=== PATIENT | female | born 1940 | race Caucasian/White ===

== ENCOUNTER 2016-10-12 07:31 | Emergency (ER) | payer MEDICARE ==
[2016-10-12] MEDS ORDERED: Zofran 4 MG/2 ML VIAL IV ONE (07:47)
--- NOTE | 2016-10-12 07:54 | ERPHSYRPT ---
- History of Present Illness Time Seen by Provider: 10/12/16 07:42 Historian: patient Patient Subjective Stated Complaint: pt arrived per for weakness, lightheadedness, and loose stools that started at 0545 today,pt was able to get from to bed and undress without difficulty Triage Nursing Assessment: alert and follows commands well, skin w/d,resp easy, chest clear, no edema noted, mucus membranes moist Physician History: CC: diarrhea Hx: 76 y/o patient of Dr Riley. She has feeling of dizziness today. Lightheaded. Some buzzing. No hearing loss and no linda vertigo. She has had too numerous to count watery diarrhea stools today since 5AM. No blood. No abd pain. No fever or chills. No hx of DM. No headache. She took recent abtx thru [facility] [facility] for sinus infection. Timing/Duration: today (5AM) Allergies/Adverse Reactions: No Known Drug Allergies Allergy (Verified 10/12/16 07:48) Hx Tetanus, Diphtheria Vaccination/Date Given: Yes (unknown) Hx Influenza Vaccination/Date Given: No Hx Pneumococcal Vaccination/Date Given: Yes Immunizations Up to Date: Yes - Review of Systems Constitutional: Fatigue, Malaise, Weakness, No Fever, No Chills Eyes: No Symptoms Ears, Nose, & Throat: Tinnitus (buzzing), No Ear Pain, No Ear Discharge, No Hearing Changes Respiratory: No Cough, No Dyspnea Cardiac: No Chest Pain Abdominal/Gastrointestinal: Diarrhea, No Abdominal Pain, No Nausea, No Vomiting Genitourinary Symptoms: No Dysuria Skin: No Rash Neurological: Dizziness, No Focal Weakness, No Headache, No Parasthesia All Other Systems: Reviewed and Negative - Past Medical History Pertinent Past Medical History: Yes Neurological History: No Pertinent History ENT History: Cataracts Cardiac History: No Pertinent History Respiratory History: No Pertinent History Endocrine Medical History: No Pertinent History Musculoskeletal History: No Pertinent History GI Medical History: No Pertinent History History: Other Psycho-Social History: No Pertinent History Female Reproductive Disorders: No Pertinent History Other Medical History: bladder stones - Past Surgical History Past Surgical History: Yes Neuro Surgical History: No Pertinent History Cardiac: No Pertinent History Respiratory: No Pertinent History Gastrointestinal: No Pertinent History Genitourinary: Other Musculoskeletal: No Pertinent History Female Surgical History: Hysterectomy Other Surgical History: complete hysterectomy and bladder stone removal on - Social History Smoking Status: Never smoker Exposure to second hand smoke: No Drug Use: none Patient Lives Alone: No - Female History Hx Last Menstrual Period: hyster Hx Now: No - Nursing Vital Signs Nursing Vital Signs: Initial Vital Signs Temperature 97.8 F Temperature Source Oral Pulse Rate 89 Respiratory Rate 16 Blood Pressure [Right Arm] 156/93 Pain Intensity 0 - Physical Exam General Appearance: alert Eye Exam: PERRL/EOMI, other (no nystagmus) Ears, Nose, Throat Exam: normal ENT inspection, moist mucous membranes Neck Exam: normal inspection, non-tender, supple Respiratory Exam: normal breath sounds, lungs clear Cardiovascular Exam: regular rate/rhythm Gastrointestinal/Abdomen Exam: soft, No tenderness, No distention, No mass, No guarding Extremity Exam: normal inspection, normal range of motion Neurologic Exam: alert, oriented x 3, cooperative, entry table operator II-XII nml as tested, sensation nml, No motor deficits, No abnormal cerebellar tests (FTN is intact, Heel to Paulino is intact) Skin Exam: warm, dry, No rash SpO2 Interpretation: normal SpO2: 95 Oxygen Delivery: Room Air - Course Nursing assessment & vital signs reviewed: Yes EKG Interpreted by Me: RATE (93), Sinus Rhythm, NORMAL AXIS, NORMAL INTERVALS ( QTc 458), NORMAL QRS, NORMAL ST-T - Radiology Exams AAS X-ray Interpretation: Teleradiologist Report, Negative Ordered Tests: Active Orders 24 hr Category Date Time Status Cath for Specimen-Straight STAT Care 10/12/16 07:47 Active EKG-ER Only STAT Care 10/12/16 07:47 Active IV Insertion STAT Care 10/12/16 07:47 Active Orthostatic Vital Signs STAT Care 10/12/16 09:28 Active OBSTR/ACUTE ABDOMEN SERIES Stat Exams 10/12/16 07:47 Completed CBC W DIFF Stat Lab 10/12/16 08:30 Completed CMP Stat Lab 10/12/16 08:30 Completed Lactic Acid Urgent Lab 10/12/16 08:30 Completed Occult Blood,Stool Other Stat Lab 10/12/16 07:48 Ordered UA Stat Lab 10/12/16 08:45 Completed Medication Summary Generic Name Dose Route Start Last Admin Trade Name Freq PRN Reason Stop Dose Admin Sodium Chloride 1,000 mls @ 200 mls/hr 10/12/16 08:00 10/12/16 08:02 Sodium Chloride 0.9% 1000 Ml IV 11/11/16 07:59 200 mls/hr .Q5H EL Administration Discontinued Medications Generic Name Dose Route Start Last Admin Trade Name Jennifer PRN Reason Stop Dose Admin Ondansetron HCl 4 mg 10/12/16 07:47 10/12/16 08:02 Zofran 4 Mg/2 Ml Vial IV 10/12/16 07:48 4 mg STAT ONE Administration Ondansetron HCl Confirm 10/12/16 07:59 Zofran 4 Mg/2 Ml Vial Administered 10/12/16 08:00 Dose 4 mg .ROUTE .STK-MED ONE Lab/Rad Data: Laboratory Result Diagrams 10/12/16 08:30 10/12/16 08:30 Laboratory Results 10/12/16 10/12/16 10/12/16 Range/Units 08:45 08:30 08:30 WBC (4.0-10.5) K/mm3 RBC (4.1-5.4) M/mm3 Hgb (12.0-16.0) gm/dl Hct (35-47) % MCV (78-100) fl MCH (26-32) pg MCHC (32-36) g/dl RDW (11.5-14.0) % Plt Count (150-450) K/mm3 MPV (6-9.5) fl Gran % (36.0-66.0) % Lymphocytes % (24.0-44.0) % Monocytes % (0.0-12.0) % Eosinophils % (0.00-5.0) % Basophils % (0.0-0.4) % Basophils # (0-0.4) Sodium 144 (136-145) mEq/L Potassium 3.6 (3.5-5.1) mEq/L Chloride 107 (98-107) mEq/L Carbon Dioxide 28.9 (21-32) mEq/L Anion Gap 11.2 (5-15) MEQ/L BUN 17 (9-20) mg/dL Creatinine 0.93 (0.55-1.30) mg/dl Estimated GFR > 60 ML/MIN Glucose 111 H (70-110) MG/DL Lactic Acid 1.2 (0.4-2.0) Calcium 8.8 (8.5-10.1) mg/dL Total Bilirubin 0.5 (0.2-1.0) mg/dL AST 27 (15-37) U/L ALT 24 (12-78) U/L Alkaline Phosphatase 72 (46-116) U/L Serum Total Protein 7.1 (6.4-8.2) gm/dL Albumin 3.6 (3.4-5.0) g/dL Ur Collection Type VOID Urine Color YELLOW (YELLOW) Urine Appearance CLEAR (CLEAR) Urine pH 6.5 (5-6) Ur Specific [place] <=1.005 (1.005-1.025) Urine Protein NEGATIVE (Negative) Urine Glucose (UA) NEGATIVE (NEGATIVE) mg/dL Urine Ketones NEGATIVE (NEGATIVE) Urine Nitrite NEGATIVE (NEGATIVE) Urine Bilirubin NEGATIVE (NEGATIVE) Urine Urobilinogen 0.2 (0-1) mg/dL Urine WBC (Auto) NEGATIVE (NEGATIVE) Urine RBC (Auto) NEGATIVE (0-5) Alirio/ul Specimen Received 10/12/16 0845 10/12/16 Range/Units 08:30 WBC 8.7 (4.0-10.5) K/mm3 RBC 4.66 (4.1-5.4) M/mm3 Hgb 14.3 (12.0-16.0) gm/dl Hct 45.0 (35-47) % MCV 96.6 (78-100) fl MCH 30.7 (26-32) pg MCHC 31.8 L (32-36) g/dl RDW 13.9 (11.5-14.0) % Plt Count 234 (150-450) K/mm3 MPV 8.6 (6-9.5) fl Gran % 77.5 H (36.0-66.0) % Lymphocytes % 15.6 L (24.0-44.0) % Monocytes % 5.5 (0.0-12.0) % Eosinophils % 1.2 (0.00-5.0) % Basophils % 0.2 (0.0-0.4) % Basophils # 0.02 (0-0.4) Sodium (136-145) mEq/L Potassium (3.5-5.1) mEq/L Chloride (98-107) mEq/L Carbon Dioxide (21-32) mEq/L Anion Gap (5-15) MEQ/L BUN (9-20) mg/dL Creatinine (0.55-1.30) mg/dl Estimated GFR ML/MIN Glucose (70-110) MG/DL Lactic Acid (0.4-2.0) Calcium (8.5-10.1) mg/dL Total Bilirubin (0.2-1.0) mg/dL AST (15-37) U/L ALT (12-78) U/L Alkaline Phosphatase (46-116) U/L Serum Total Protein (6.4-8.2) gm/dL Albumin (3.4-5.0) g/dL Ur Collection Type Urine Color (YELLOW) Urine Appearance (CLEAR) Urine pH (5-6) Ur Specific [place] (1.005-1.025) Urine Protein (Negative) Urine Glucose (UA) (NEGATIVE) mg/dL Urine Ketones (NEGATIVE) Urine Nitrite (NEGATIVE) Urine Bilirubin (NEGATIVE) Urine Urobilinogen (0-1) mg/dL Urine WBC (Auto) (NEGATIVE) Urine RBC (Auto) (0-5) Alirio/ul Specimen Received - Progress Progress Note: 10/12/16 09:35 Patient feels better. Ambulated well in the alexis. Normal neuro exam. She will try to go home. Will give order for C diff in case diarrhea continues. Zofran ODT Rx. Counseled pt/family regarding: lab results, diagnosis, need for follow-up, rad results - Departure Time of Disposition: 09:36 Departure Disposition: Home Clinical Impression: Dizziness Diarrhea Qualifiers: Diarrhea type: unspecified type Qualified Code(s): R19.7 - Diarrhea, unspecified Condition: Fair Critical Care Time: No Referrals: ADWOA RILEY [Primary Care Provider] - Instructions: Diarrhea and Traveler's Diarrhea -- Adult Additional Instructions: Plenty of oral fluids. Rx zofran ODT for nausea. Collect diarrhea for C diff test. Follow up with Dr Riley. Return for problems or concerns. Prescriptions: Ondansetron [Zofran Odt] 4 mg PO Q6HPRN PRN #10 tab.rapdis PRN Reason: Nausea/Vomiting
[2016-10-12] MEDS ORDERED: Zofran 4 MG/2 ML VIAL ONE (07:59)
[2016-10-12] MEDS ORDERED: Sodium Chloride 0.9% 1000 ML 1,000 ML ONE (07:59)
[2016-10-12] MEDS ORDERED: Sodium Chloride 0.9% 1000 ML 1,000 ML IV SCH (08:00)
[2016-10-12 08:38] LABS: BASOPHIL % 0.2 % (0.0-0.4); Eosinophil % 1.2 % (0.00-5.0); Granulocytes % 77.5 % (36.0-66.0); Lymphocytes % 15.6 % (24.0-44.0); Mean Cell Volume 96.6 fl (78-100); Mean Corpuscular Hemoglobin 30.7 pg (26-32); Mean Platelet Volume 8.6 fl (6-9.5); Monocytes % 5.5 % (0.0-12.0); Platelet Count 234 K/mm3 (150-450); Red Blood Count 4.66 M/mm3 (4.1-5.4); Red Cell Distribution Width 13.9 % (11.5-14.0); White Blood Count 8.7 K/mm3 (4.0-10.5)
[2016-10-12 08:57] LABS: Collection Type VOID
[2016-10-12 08:58] LABS: COMPLETE URINE MICROSCOPIC? NO; Ph 6.5 (5-6)
--- NOTE | 2016-10-12 09:03 | XRAY ---
Indication: Diarrhea. Dizziness. Comparison: September 22, 2012. 2 views of the abdomen again nonacute and nonobstructed with a few pelvic phleboliths. Solid organs unremarkable. Osseous structures again demineralized with mild degenerative changes throughout the spine and levorotoscoliosis. Single PA chest remains clear again with chronic left hemidiaphragm elevation. Heart is not enlarged. Bony thorax intact with again osteopenia, degenerative changes, and dextrorotoscoliosis. Impression: 1. Stable nonacute nonobstructed abdomen. 2. Stable nonacute 1 view chest with chronic feature. 3. Stable osteopenia, spinal degenerative spondylosis, and double curvature scoliosis.
[2016-10-12 09:13] LABS: ALBUMIN 3.6 g/dL (3.4-5.0); ALKALINE PHOSPHATASE 72 U/L (46-116); ANION GAP 11.2 MEQ/L (5-15); BILIRUBIN,TOTAL 0.5 mg/dL (0.2-1.0); BLOOD UREA NITROGEN 17 mg/dL (9-20); CHLORIDE 107 mEq/L (98-107); Carbon Dioxide 28.9 mEq/L (21-32); Glucose 111 MG/DL (70-110); Potassium 3.6 mEq/L (3.5-5.1); SGOT/AST 27 U/L (15-37); SGPT/ALT 24 U/L (12-78); SODIUM 144 mEq/L (136-145); Total Protein 7.1 gm/dL (6.4-8.2)
[2016-10-12 09:37] VITALS: BP 142/64; PULSE 91; O2SAT 95
== END 2016-10-12 09:49 | disposition home or self-care (01) ==
LOC: ED 07:31
DX: R19.7 Diarrhea, unspecified (principal); R42 Dizziness and giddiness; H93.19 Tinnitus, unspecified ear
CPT/HCPCS: 36000; 36415; 74022; 80053; 81002; 83605; 85025; 93005; 96360; 96361; 96374; 99284; J2405; P9612

== ENCOUNTER 2016-10-22 07:07 | Emergency (ER) | payer MEDICARE ==
[2016-10-22] MEDS ORDERED: PEROXIDE 3% TOP ONE (07:37)
--- NOTE | 2016-10-22 07:48 | ERPHSYRPT ---
- History of Present Illness Time Seen by Provider: 10/22/16 07:35 Source: patient Exam Limitations: clinical condition Patient Subjective Stated Complaint: pt co htn this morning, she states she has ringing in ears, Triage Nursing Assessment: pt alert resp easy, skin w/d,walked in on own. small amt of edema in lower legs Physician History: PATIENT EVALUATED IN EMERGENCY ROOM 1 WEEK AGO OF ELEVATED BLOOD PRESSURE, HOWEVER BLOOD PRESSURE IN NORMAL RANGE, TODAY FEELS LIKE BUZZING SENSATION IN HEAD, DENIES HEADACHE, BLURRED VISION, SLURRED SPEECH, FOCAL WEAKNESS, NUMBNESS OR TINGLING IN EXTREMITIES. DENIES PALPITATIONS, CHEST PAIN, DYSPNEA, COUGH, FEVER, OR FACIAL PRESSURE. Timing/Duration: today Severity: moderate Character of Deficits: other (BUZZING SENSATION IN HEAD) Deficits: no difficulties Baseline/Normal Cognition: alert oriented x 3 Current Cognition: alert oriented x 3 Baseline Gait: walks w/o assistance Associated Symptoms: ringing in ears (BUZZING IN HEAD POSSIBLE IN EARS) Allergies/Adverse Reactions: No Known Drug Allergies Allergy (Verified 10/22/16 07:16) Hx Tetanus, Diphtheria Vaccination/Date Given: Yes (unknown) Hx Influenza Vaccination/Date Given: No Hx Pneumococcal Vaccination/Date Given: No Immunizations Up to Date: Yes - Review of Systems Constitutional: No Fever, No Chills Eyes: No Symptoms Ears, Nose, & Throat: No Symptoms Respiratory: No Symptoms, No Cough, No Dyspnea Cardiac: No Symptoms, No Chest Pain, No Edema, No Syncope Abdominal/Gastrointestinal: No Symptoms, No Abdominal Pain, No Nausea, No Vomiting, No Diarrhea Genitourinary Symptoms: No Symptoms, No Dysuria Musculoskeletal: No Symptoms, No Back Pain, No Neck Pain Skin: No Symptoms, No Rash Neurological: Other (BUZZING IN HEAD), No Dizziness, No Focal Weakness, No Sensory Changes Psychological: No Symptoms Endocrine: No Symptoms All Other Systems: Reviewed and Negative - Past Medical History Pertinent Past Medical History: Yes Neurological History: No Pertinent History ENT History: Cataracts Cardiac History: No Pertinent History Respiratory History: No Pertinent History Endocrine Medical History: No Pertinent History Musculoskeletal History: No Pertinent History GI Medical History: No Pertinent History History: Other Psycho-Social History: No Pertinent History Female Reproductive Disorders: No Pertinent History Other Medical History: bladder stones - Past Surgical History Past Surgical History: Yes Neuro Surgical History: No Pertinent History Cardiac: No Pertinent History Respiratory: No Pertinent History Gastrointestinal: No Pertinent History Genitourinary: Other Musculoskeletal: No Pertinent History Female Surgical History: Hysterectomy Other Surgical History: complete hysterectomy and bladder stone removal on - Social History Smoking Status: Never smoker Exposure to second hand smoke: Yes Drug Use: none Patient Lives Alone: Yes - Female History Hx Last Menstrual Period: post Hx Now: No - Nursing Vital Signs Nursing Vital Signs: Initial Vital Signs Temperature 97.4 F Temperature Source Oral Pulse Rate 78 Respiratory Rate 18 Blood Pressure [Right Arm] 137/82 Pain Intensity 0 - [place] Coma Scale Best Eye Response (Aliza): (4) open spontaneously Best Verbal Response ([place]): (5) oriented Best Motor Response (Aliza): (6) obeys commands Aliza Total: 15 - Physical Exam General Appearance: no apparent distress, alert Eye Exam: bilateral eye: normal inspection, PERRL, EOMI Ears, Nose, Throat Exam: normal ENT inspection, pharynx normal, moist mucous membranes, other (UNABLE TO VISUALIZE TM DUE TO OCCLUSION OF CERUMEN) Neck Exam: normal inspection, non-tender, supple Respiratory: normal breath sounds, lungs clear, airway intact, No respiratory distress Cardiovascular: regular rate/rhythm, No edema Gastrointestinal: soft, normal bowel sounds, No tenderness, No distention Back Exam: normal inspection Extremity Exam: normal inspection, No pedal edema Peripheral Pulses: carotid (R): 2+, carotid (L): 2+, femoral (R): 2+, femoral (L ): 2+, dorsalis-pedis (R): 2+, dorsalis-pedis (L): 2+ Mental Status: alert, oriented x 3 client executive Exam: normal hearing, tongue midline Coordination/Gait: normal finger to nose, normal gait DTR: bicep (R): 2+, bicep (L): 2+, tricep (R): 2+, tricep (L): 2+, knee (R): 2+ , knee (L): 2+, ankle (R): 2+, ankle (L): 2+ Skin Exam: normal color, warm, dry, No rash SpO2 Interpretation: normal SpO2: 94 Oxygen Delivery: Room Air - Course EKG Interpreted by Me: RATE, Sinus Rhythm, NORMAL AXIS - CT Exams Head CT Interpretation: Discussed w/radiologist (THERE IS AIR FLUID LEVEL IN RIGHT MAXILLARY SINUS AND MINIMAL BILATERAL ETHMOID SINUS MUCOSAL THICKENING) Ordered Tests: Active Orders 24 hr Category Date Time Status Account Manager [employer] STAT Care 10/22/16 07:32 Active EKG-ER Only STAT Care 10/22/16 07:32 Active IV Insertion STAT Care 10/22/16 08:01 Active Orthostatic Vital Signs STAT Care 10/22/16 07:32 Active Saline Lock STAT Care 10/22/16 07:35 Inactive HEAD WITHOUT CONTRAST [CT] Stat Exams 10/22/16 07:34 Completed BMP Stat Lab 10/22/16 07:51 Completed CBC W DIFF Stat Lab 10/22/16 07:51 Completed MAGNESIUM Stat Lab 10/22/16 07:51 Completed Manual Differential NC Stat Lab 10/22/16 07:51 Completed UA W/ MICROSCOPIC Stat Lab 10/22/16 07:34 Completed Medication Summary Discontinued Medications Generic Name Dose Route Start Last Admin Trade Name Freq PRN Reason Stop Dose Admin Hydrogen Peroxide 5 ml 10/22/16 07:37 10/22/16 08:03 Peroxide 3% TOP 10/22/16 07:38 237 ml STAT ONE Administration Hydrogen Peroxide Confirm 10/22/16 08:03 Peroxide 3% Administered 10/22/16 08:04 Dose 237 ml .ROUTE .STMercantec-MED ONE Lab/Rad Data: Laboratory Result Diagrams 10/22/16 07:51 10/22/16 07:51 Laboratory Results 10/22/16 10/22/16 10/22/16 Range/Units 07:51 07:51 07:34 WBC 9.1 (4.0-10.5) K/mm3 RBC 4.72 (4.1-5.4) M/mm3 Hgb 14.7 (12.0-16.0) gm/dl Hct 45.7 (35-47) % MCV 96.8 (78-100) fl MCH 31.1 (26-32) pg MCHC 32.2 (32-36) g/dl RDW 13.7 (11.5-14.0) % Plt Count 161 (150-450) K/mm3 MPV 10.7 H (6-9.5) fl Sodium 143 (136-145) mEq/L Potassium 4.0 (3.5-5.1) mEq/L Chloride 107 (98-107) mEq/L Carbon Dioxide 29.8 (21-32) mEq/L Anion Gap 10.4 (5-15) MEQ/L BUN 15 (9-20) mg/dL Creatinine 0.93 (0.55-1.30) mg/dl Estimated GFR > 60 ML/MIN Glucose 108 (70-110) MG/DL Calcium 9.1 (8.5-10.1) mg/dL Magnesium 2.1 (1.8-2.4) mg/dL Ur Collection Type CLEAN CATCH Urine Color YELLOW (YELLOW) Urine Appearance CLEAR (CLEAR) Urine pH 7.0 (5-6) Ur Specific [place] 1.010 (1.005-1.025) Urine Protein NEGATIVE (Negative) Urine Glucose (UA) NEGATIVE (NEGATIVE) mg/dL Urine Ketones NEGATIVE (NEGATIVE) Urine Nitrite NEGATIVE (NEGATIVE) Urine Bilirubin NEGATIVE (NEGATIVE) Urine Urobilinogen 0.2 (0-1) mg/dL Urine WBC (Auto) TRACE (NEGATIVE) Urine RBC (Auto) NEGATIVE (0-5) Alirio/ul Urine Microscopic WBC 2-5 (0-5) /HPF Ur Epithelial Cells FEW (FEW) /HPF Urine Bacteria RARE (NEGATIVE) /HPF Specimen Received 10/22/16 0707 - Progress Progress: improved Progress Note: 10/22/16 08:04 ORTHOSTASIS STANDING BP137/83 P-89, SUPINE BP114/89 P-88 10/22/16 08:58 EAR CANALS IRRIGATION WITH TAP WATER AND 3% PEROXIDE, REMOVAL CERUMEN, TYMPANIC MEMBRANES WITHOUT ERYTHEMA 10/22/16 09:03 Counseled pt/family regarding: lab results, diagnosis, rad results - Departure Time of Disposition: 09:05 Departure Disposition: Home Clinical Impression: ACUTE MAXILLARY/ETHMOID SINUSITIS, REMOVAL CERUMEN BILATERAL EAR CANALS Condition: Stable Critical Care Time: No Additional Instructions: ANTIBIOTIC AUGMENTIN 875MG TWICE DAILY FOR 10 DAYS. FOLLOWUP WITH YOUR FAMILY PHYSICIAN IN 1 WEEK FOR EVALUATION. Prescriptions: Amox Tr/Potass Clav. 875 mg [Augmentin 875-125 Tablet] 875 mg PO BID #20 tablet
[2016-10-22] MEDS ORDERED: PEROXIDE 3% ONE (08:03)
[2016-10-22 08:19] LABS: ANION GAP 10.4 MEQ/L (5-15); BLOOD UREA NITROGEN 15 mg/dL (9-20); CHLORIDE 107 mEq/L (98-107); Carbon Dioxide 29.8 mEq/L (21-32); Glucose 108 MG/DL (70-110); MAGNESIUM 2.1 mg/dL (1.8-2.4); SODIUM 143 mEq/L (136-145)
[2016-10-22 08:21] LABS: Collection Type CLEAN CATCH
[2016-10-22 08:22] LABS: COMPLETE URINE MICROSCOPIC? YES
[2016-10-22 08:30] LABS: Bacteria RARE /HPF (NEGATIVE); Epithelial Cells FEW /HPF (FEW)
[2016-10-22 08:34] LABS: Mean Cell Volume 96.8 fl (78-100); Mean Corpuscular Hemoglobin 31.1 pg (26-32); Mean Platelet Volume 10.7 fl (6-9.5); Platelet Count 161 K/mm3 (150-450); Red Blood Count 4.72 M/mm3 (4.1-5.4); Red Cell Distribution Width 13.7 % (11.5-14.0); White Blood Count 9.1 K/mm3 (4.0-10.5)
--- NOTE | 2016-10-22 08:56 | XRAY ---
Indication: Lightheadedness. High blood pressure. Multiple contiguous axial images obtained through the head without contrast. Comparison: None Age-appropriate global atrophy and minimal periventricular degenerative micro-ischemia bilaterally. Small focus of old infarct in the right parietal lobe near the vertex. Benign bilateral physiologic basal ganglia calcifications. No acute intracranial hemorrhage, hydrocephalus, or mass effect. Bony calvarium intact with mild hyperostosis frontalis interna. Visualized paranasal sinuses and mastoid air cells are pneumatized and clear. 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 CT DI 96.90
[2016-10-22 09:43] VITALS: BP 136/59; PULSE 70; O2SAT 97
[2016-10-22 12:55] LABS: Eosinophil 1 % (0.00-3.0); Total Cells Counted 100
[2016-10-22 12:56] LABS: Platelet Estimate NORMAL (NORMAL); Toxic Granulation 1+
== END 2016-10-22 09:43 | disposition home or self-care (01) ==
LOC: ED 07:07
DX: H61.23 Impacted cerumen, bilateral (principal); I25.2 Old myocardial infarction; I10 Essential (primary) hypertension; H93.13 Tinnitus, bilateral
CPT/HCPCS: 36415; 70450; 80048; 81000; 83735; 85025; 93005; 93041; 99283; 99285; A9270-GY

== ENCOUNTER 2016-12-21 06:20 | Observation (INO) | payer MEDICARE ==
--- NOTE | 2016-12-21 06:58 | ERPHSYRPT ---
- History of Present Illness Time Seen by Provider: 12/21/16 06:37 Source: patient, family (SON) Exam Limitations: no limitations Patient Subjective Stated Complaint: pt is co "buzzing in ears and head" this am states she has feeling of tightness in left jaw when she swallows-she is worried because a year ago she had a surgery on her right throat for an abscess that was done from the left lide of her neck no fever no shortness of breath no diaphoresis cough this am with phlegm times one -she was recently started on losartan for b/p Triage Nursing Assessment: pt is awake and alert and able to answer questions - talking without difficulty resp reg and easy Physician History: YESTERDAY PT STARTED WITH BUZZING IN HER HEAD AND A COUGH PRODUCTIVE OF WHITE PHLEGM. ABOUT 2 HOURS AGO PT STARTED WITH DIFFICULTY SWALLOWING AND PAIN IN THE LEFT SIDE OF HER NECK AND LEFT JAW. PT DENIES CHEST PAIN, SHORTNESS OF AIR, FEVER, ABDOMINAL PAIN. PT HAD A "POUCH" ON THE LEFT SIDE OF THE NECK REMOVED IN FEBRUARY [address] STEWART AT [facility] IN [place]. Allergies/Adverse Reactions: No Known Drug Allergies Allergy (Verified 12/21/16 06:50) Home Medications: Losartan Potassium 25 mg DAILY 12/21/16 [History] Hx Tetanus, Diphtheria Vaccination/Date Given: Yes (unknown) Hx Influenza Vaccination/Date Given: No Hx Pneumococcal Vaccination/Date Given: Yes - Review of Systems Constitutional: No Fever Ears, Nose, & Throat: Other (DIFFICULTY SWALLOWING THIS AM; LEFT JAW PAIN.) Respiratory: Cough Cardiac: No Chest Pain Abdominal/Gastrointestinal: No Abdominal Pain, No Vomiting Musculoskeletal: Neck Pain (LEFT SIDE OF NECK PAIN) Neurological: Other (BUZZING IN HEAD) All Other Systems: Reviewed and Negative - Past Medical History Pertinent Past Medical History: Yes Neurological History: No Pertinent History ENT History: Cataracts Cardiac History: No Pertinent History Respiratory History: No Pertinent History Endocrine Medical History: No Pertinent History Musculoskeletal History: No Pertinent History GI Medical History: No Pertinent History History: Other Psycho-Social History: No Pertinent History Female Reproductive Disorders: No Pertinent History Other Medical History: bladder stones abscess right neck - Past Surgical History Past Surgical History: Yes Neuro Surgical History: No Pertinent History Cardiac: No Pertinent History Respiratory: No Pertinent History Gastrointestinal: No Pertinent History Genitourinary: Other Musculoskeletal: No Pertinent History Female Surgical History: Hysterectomy Other Surgical History: complete hysterectomy and bladder stone removal on abcsess of right neck - Social History Smoking Status: Never smoker Exposure to second hand smoke: No Drug Use: none Patient Lives Alone: No (with son) - Female History Hx Last Menstrual Period: na Hx Now: No - Nursing Vital Signs Nursing Vital Signs: Initial Vital Signs Temperature 98.7 F Temperature Source Oral Pulse Rate 88 Respiratory Rate 16 Blood Pressure [Right Arm] 140/70 Pain Intensity 0 - Physical Exam General Appearance: alert Eye Exam: PERRL/EOMI Ears, Nose, Throat Exam: pharynx normal, moist mucous membranes, other (CERUMEN OCCLUSION OF LEFT EAR) Neck Exam: full range of motion, other (MILD TENDERNESS OF THE LEFT SIDE OF THE NECK BELOW LEFT JAW) Respiratory Exam: normal breath sounds Cardiovascular Exam: murmur (1/6 SYSTOLIC MURMUR) Gastrointestinal/Abdomen Exam: soft, other (B.S. MILDLY HYPERACTIVE AND NORMOTONIC) Back Exam: normal range of motion Extremity Exam: normal inspection Neurologic Exam: alert, cooperative, normal mood/affect Skin Exam: warm, dry SpO2 Interpretation: normal SpO2: 95 Oxygen Delivery: Room Air - Course Nursing assessment & vital signs reviewed: Yes - Progress Discussed with Dr.: Riley (OBS - 0713(ORDER CARDIAC WORKUP AND CAROTID DOPPLER STUDY).) - Departure Time of Disposition: 07:20 Departure Disposition: Observation Clinical Impression: LEFT JAW/NECK PAIN, DIFFICULTY SWALLOWING Condition: Fair Critical Care Time: No
[2016-12-21] MEDS ORDERED: Sodium Chloride 0.9% 1000 ML 1,000 ML IV SCH (07:30)
[2016-12-21 07:41] LABS: BASOPHIL % 0.2 % (0.0-0.4); Eosinophil % 1.8 % (0.00-5.0); Granulocytes % 69.3 % (36.0-66.0); Lymphocytes % 21.9 % (24.0-44.0); Mean Cell Volume 97.4 fl (78-100); Mean Corpuscular Hemoglobin 31.5 pg (26-32); Mean Platelet Volume 8.7 fl (6-9.5); Monocytes % 6.8 % (0.0-12.0); Platelet Count 261 K/mm3 (150-450); Red Blood Count 4.63 M/mm3 (4.1-5.4); Red Cell Distribution Width 12.9 % (11.5-14.0); White Blood Count 8.7 K/mm3 (4.0-10.5)
[2016-12-21 08:06] LABS: ALBUMIN 3.6 g/dL (3.4-5.0); ALKALINE PHOSPHATASE 89 U/L (46-116); ANION GAP 12.4 MEQ/L (5-15); BLOOD UREA NITROGEN 14 mg/dL (9-20); CHLORIDE 109 mEq/L (98-107); Carbon Dioxide 27.9 mEq/L (21-32); Glucose 118 MG/DL (70-110); Potassium 3.5 mEq/L (3.5-5.1); SGOT/AST 29 U/L (15-37); SGPT/ALT 28 U/L (12-78); SODIUM 146 mEq/L (136-145); Total Protein 7.6 gm/dL (6.4-8.2)
[2016-12-21 08:08] LABS: TROPONIN < 0.017 ng/ml (0.000-0.056)
[2016-12-21] MEDS ORDERED: Phenergan 25 MG INJ IV PRN (08:09)
[2016-12-21] MEDS ORDERED: TYLENOL 325 MG PO PRN (08:09)
--- NOTE | 2016-12-21 09:02 | XRAY ---
Indication: Difficulty swallowing. Left jaw/neck pain. Comparison: October 12, 2016. Portable chest remains clear with chronic left hemidiaphragm elevation. Heart is not enlarged. Bony thorax intact again with a degenerative changes and scoliosis. No new/acute findings. Impression: Stable nonacute chest with chronic features.
[2016-12-21 09:57] LABS: COMPLETE URINE MICROSCOPIC? YES; Collection Type CCMS
[2016-12-21] MEDS ORDERED: Cozaar 50 MG PO SCH (10:00)
[2016-12-21 10:16] LABS: ADD URINE CULTURE? NO (NO); Bacteria FEW /HPF (NEGATIVE); Epithelial Cells RARE /HPF (FEW); WBC 0-2 /HPF (0-5)
--- NOTE | 2016-12-21 14:05 | XRAY ---
Indication: Left neck/jaw pain. Two-dimensional sonogram and color Doppler imaging of the carotid arteries in the neck was performed. Comparison: None Proximal common carotid artery is slightly tortuous. No focal arteriosclerotic plaquing, critical stenosis, or obstruction. PSV of the CCA is 73 cm/s. PSV of the ICA is 64 cm/s. ICA/CCA ratio is 0.9. Normal antegrade vertebral artery flow. Examination of the left carotid circulation also widely patent. PSV of the CCA is 79 cm/s. PSV of the ICA is 55 cm/s. ICA/CCA ratio is 0.7. Normal antegrade vertebral artery flow. Impression: Negative carotid ultrasound. Velocity measurements and ratios are negative for hemodynamically significant flow-limiting stenosis.
--- NOTE | 2016-12-21 15:34 | PCM.HP ---
History of Present Illness - Chief Complaint Chief Complaint: left neck/jaw pain History of Present Illness: is a 76 year old female Pt from [facility] who came to ER this morning c/o having a feeling like "bees buzzing" in her head. It started yesterday but increased in intensity this morning. She also c/o L sided jaw pain and some difficulty swallowing water. No previous difficulty swallowing. Pt is only on po valsartan, for about the past 1 month. Jen c/o [place], 11/18. She denies any paresthesias. 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 She is a fairly poor historian, has a difficult time characterizing her symptoms. - Review of Systems Ears, Nose, & Throat: Ear Pain, Tinnitus (as in HPI), Other (difficulty swallowing) Cardiac: No Chest Pain Skin: Other (lesion removed last week in office, shave bx, R forearm) Psychological: Anxiety, No Depression, No Suicidal Ideations Medications & Allergies Home Medications: Home Medication List Losartan Potassium 25 mg DAILY 12/21/16 [History Confirmed 12/21/16] Allergies/Adverse Reactions: Allergies Allergy/AdvReac Type Severity Reaction Status Date / Time No Known Drug Allergies Allergy Verified 12/21/16 06:50 - Past Medical History Past Medical History: Yes Neurological History: No Pertinent History ENT History: Cataracts Cardiac History: No Pertinent History Respiratory History: No Pertinent History Endocrine Medical History: No Pertinent History Musculoskelatal History: No Pertinent History GI Medical History: No Pertinent History History: Other Pyscho-Social History: No Pertinent History Reproductive Disorders: No Pertinent History Comment: bladder stones abscess right neck - Female History Hx Last Menstrual Period: hysterectomy Are you now?: No - Past Surgical History Past Surgical History: Yes Neuro Surgical History: No Pertinent History Cardiac History: No Pertinent History Respiratory Surgery: No Pertinent History GI Surgical History: No Pertinent History Genitourinary Surgical Hx: Other Musculskeletal Surgical Hx: No Pertinent History Female Surgical History: Hysterectomy Other Surgical History: complete hysterectomy and bladder stone removal on abcsess of right neck - Social History Smoking Status: Never smoker Exposure to second hand smoke: No Alcohol: None Drug Use: none - Physical Exam Vital Signs: Vital Signs - 24 hr Temp Pulse Resp BP Pulse Ox 12/21/16 12:00 98.2 F 87 20 139/71 91 L 12/21/16 08:45 97.8 F 89 20 140/72 92 L 12/21/16 07:20 95 12/21/16 06:46 98.7 F 88 16 140/70 95 General Appearance: mild distress (lying with cold rag on her forehead) Neurologic Exam: alert, oriented x 3, cooperative Eye Exam: eyes nml inspection Ears, Nose, Throat Exam: other (L canal ceruminous. R TM appears wnl, although cerumen is present.) Neck Exam: normal inspection, non-tender, No lymphadenopathy Respiratory Exam: normal breath sounds, lungs clear, No crackles/rales, No rhonchi, No wheezing Cardiovascular Exam: regular rate/rhythm, normal heart sounds, No murmur Back Exam: normal inspection Extremity Exam: No pedal edema, No swelling Skin Exam: normal color, other (R forearm s/p removal, healing (healthy bed, no exudate, no erytheyma - approx 3x4cm). R cheek with darkly pigmented constellation of lesions as before), No warm, No dry Results - Labs Lab/Micro Results: Lab Results-Last 24 Hours 12/21/16 Range/Units 13:45 Troponin I < 0.017 (0.000-0.056) ng/ml Assessment/Plan (1) Neck pain Current Visit: Yes Status: Acute Assessment & Plan: Better now. Pt is being ruled out for VA. Code(s): M54.2 - CERVICALGIA (2) Difficulty swallowing Current Visit: Yes Status: Acute Qualifiers: Dysphagia type: unspecified Qualified Code(s): R13.10 - Dysphagia, unspecified Assessment & Plan: swallow study.Will stop the losartan, unsure if it had anything to do with that. Code(s): R13.10 - DYSPHAGIA, UNSPECIFIED (3) Tinnitus Current Visit: Yes Status: Acute Assessment & Plan: Recurrent, and drives pt to ER each time. This is the third episode. Check MRI brain, then consult neurology. Code(s): H93.19 - TINNITUS, UNSPECIFIED EAR (4) Dizziness Current Visit: No Status: Acute Assessment & Plan: as above, Code(s): R42 - DIZZINESS AND GIDDINESS
[2016-12-22 07:14] VITALS: PULSE 80
--- NOTE | 2016-12-22 08:20 | PCM.NOTE ---
Date and Time: 12/22/16814 Subjective Assessment: Still c/o "bees buzzing" in her head. She could not tolerate the MRI yesterday while unmedicated. - Review of Systems Constitutional: No Fever Abdominal/Gastrointestinal: No Nausea, No Vomiting Objective Exam General Appearance: no apparent distress Neurologic Exam: alert, oriented x 3, cooperative Skin Exam: normal color, warm Eye Exam: eyes nml inspection Respiratory Exam: normal breath sounds, lungs clear, No crackles/rales, No rhonchi, No wheezing Cardiovascular Exam: regular rate/rhythm, normal heart sounds, No murmur OBJECTIVE DATA Vital Signs: Vital Signs - 24 hr Temp Pulse Resp BP Pulse Ox 12/22/16 07:14 97.7 F 80 20 126/58 94 L 12/22/16 04:00 98.0 F 82 21 123/58 94 L 12/22/16 00:27 97.9 F 81 20 124/56 92 L 12/21/16 20:19 98.4 F 75 21 133/67 94 L 12/21/16 16:00 98.3 F 90 20 138/68 93 L 12/21/16 12:00 98.2 F 87 20 139/71 91 L 12/21/16 08:45 97.8 F 89 20 140/72 92 L Pain Assessment - Last Documented Pain Intensity 2 Pain Scale Used 0-10 Pain Scale Intake and Output: Intake & Output 12/19/16 12/20/16 12/21/16 12/22/16 11:59 11:59 11:59 11:59 Intake Total 900 Output Total 1400 Balance -500 Weight 90.775 kg 91.807 kg Lab Results: Lab Results-Last 24 Hours 12/21/16 Range/Units 13:45 Troponin I < 0.017 (0.000-0.056) ng/ml Assessment/Plan (1) Tinnitus Current Visit: Yes Status: Acute Assessment & Plan: sensation of "bees buzzing" in head; third episode; each time she goes to the ER and is quite distressed. MRI brain today followed by teleneurology consult. Code(s): H93.19 - TINNITUS, UNSPECIFIED EAR (2) Neck pain Current Visit: Yes Status: Acute Code(s): M54.2 - CERVICALGIA (3) Difficulty swallowing Current Visit: Yes Status: Acute Qualifiers: Dysphagia type: unspecified Qualified Code(s): R13.10 - Dysphagia, unspecified Assessment & Plan: swallow study today. Code(s): R13.10 - DYSPHAGIA, UNSPECIFIED (4) Dizziness Current Visit: No Status: Acute Assessment & Plan: no complaint currently. Code(s): R42 - DIZZINESS AND GIDDINESS
[2016-12-22] MEDS ORDERED: Ativan 2 MG/1 ML VIAL IV ONE (10:00)
[2016-12-22] MEDS ORDERED: NORVASC 5 MG PO SCH (10:00)
--- NOTE | 2016-12-22 13:13 | XRAY ---
Indication: Dizziness. Buzzing in ears. Sagittal, coronal, and axial MRI brain was performed using pre-and post T1, T2, FLAIR, diffusion, and ADC sequences. 15 cc Magnevist contrast use. Comparison: None Age-appropriate global atrophy. Small focus of encephalomalacia in the right mid parietal lobe with underlying gliotic signal presumed from old infarct or injury. Diffusion images are negative for restricted signal. There are multiple bilateral small ovoid T2 signal intensities in the periventricular white matter perpendicular to the corpus callosum suggestive of multiple sclerosis. No acute intracranial hemorrhage, mass effect, or hydrocephalus. Following gadolinium, there is no abnormal enhancing intra-or extra-axial mass. Fourth ventricle is midline. The 7/8 cranial nerve complex bilaterally symmetric. Normal flow void signal within the major intracerebral circulation. Normal-appearing craniocervical junction and sella turcica. Paranasal sinuses are clear. Impression: 1. Multiple bilateral ovoid T2 signal intensities in the periventricular white matter orientated perpendicular to the corpus callosum favoring demyelinating process such as multiple sclerosis. 2. Age-appropriate atrophy. Small focus of encephalomalacia with gliosis in the right mid parietal lobe presumably from old infarct or injury. 3. Negative contrast exam.
[2016-12-22 15:37] VITALS: BP 117/68; O2SAT 93
--- NOTE | 2016-12-22 16:42 | PCM.DS ---
Discharge Summary Date of Admission: 12/21/16 08:05 Admitting Physician: ADWOA SUTHERLAND Consults: Consults on Case 12/21/16 15:39 Consult Neurology ROUTINE Primary Care Provider: ADWOA SUTHERLAND Allergies Allergies No Known Drug Allergies Allergy (Verified 12/21/16 06:50) Hospital Summary - Hospital Course Hospital Course: Pt admitted through ER with dizziness and feeling of "bees buzzing" in her head ; she also c/o some brief difficulty swallowing. The "bees buzzing" was persistent through her stay. MRI was done with likely chronic ischemic change ( small question of MS but no associated symptoms and neurologist feels it's very unlikely). However we are doing lab work to rule out auto-immune disease/ inflammatory panel. She is feeling better on the day of discharge. No further difficulties swallowing so study not done. She was recently started on losartan, so this was discontinued and amlodipine was started. - Vitals & Intake/Output Vital Signs: Vital Signs Temperature 97.8 F 12/22/16 15:36 Pulse Rate 80 12/22/16 15:36 Respiratory Rate 20 12/22/16 15:36 Blood Pressure 117/68 12/22/16 15:36 O2 Sat by Pulse Oximetry 93 L 12/22/16 15:36 Intake & Output: Intake & Output 12/20/16 12/21/16 12/22/16 12/23/16 11:59 11:59 11:59 11:59 Intake Total 900 Output Total 1400 1000 Balance -500 -1000 Weight 90.775 kg 91.807 kg - Lab Result Diagrams: 12/21/16 07:38 12/21/16 07:38 - Radiology Exams Ordered Rad Exams-Entire Visit: Radiology Procedures Category Date Time Status MRI BRAIN W & W/O CONTRAST [MRI] Urgent Exams 12/22/16 11:18 Completed - Procedures and Test Procedures and Tests throughout Hospitalization: Therapy Orders & Screens 12/21/16 15:39 ST Eval & Treat ( Order) .as ordered Comment: Physician Instructions: Reason For Exam: Evaluate: Yes Treat: Yes Reason for Eval: difficulty swallowing this morning Diagnosis: left neck/jaw pain Discharge Exam General Appearance: no apparent distress Neurologic Exam: alert, oriented x 3, cooperative Skin Exam: normal color, warm, dry Respiratory Exam: normal breath sounds, lungs clear, No crackles/rales, No rhonchi, No wheezing Cardiovascular Exam: regular rate/rhythm, normal heart sounds, No murmur Final Diagnosis/Problem List - Final Discharge Diagnosis/Problem (1) Tinnitus Current Visit: Yes Status: Acute Assessment & Plan: MRI with likely chronic changes. Will do auto-immune panel (some question of MS , but neurology feels it is very unlikely). D/c home today. (2) Neck pain Current Visit: Yes Status: Chronic (3) Difficulty swallowing Current Visit: Yes Status: Resolved Assessment & Plan: no swallowstudy needed. (4) Dizziness Current Visit: No Status: Acute Assessment & Plan: As above. - Discharge Disposition: Home, Self-Care Condition: Fair Prescriptions: New Amlodipine Besylate 5 mg [Norvasc 5 mg] 5 mg PO QAM #30 tablet Discontinued Losartan Potassium 25 mg DAILY Follow up with: ADWOA SUTHERLAND [Primary Care Provider] -
[2016-12-24 13:09] LABS: RPR with Quantitation Non Reactive (Non Reactive)
[2016-12-24 15:15] LABS: ANA IgG Titer Not Indicated (Not Indicated)
[2016-12-24 20:25] LABS: LYME TOTAL WB TOTAL 0.26 index (0.00-0.90)
[2016-12-25 16:33] LABS: 23kDaM Absent; 39kDaM Absent; 41kdAM Absent
== END 2016-12-22 17:30 | disposition home or self-care (01) ==
LOC: ED 06:20 → MED SURG 08:05
PROVIDERS: ADMIT Family Medicine; ATTEND Family Medicine
DX: M54.2 Cervicalgia (principal); R13.10 Dysphagia, unspecified; H93.19 Tinnitus, unspecified ear; R42 Dizziness and giddiness
CPT/HCPCS: 36000; 36415; 70553; 71010; 80053; 81000; 83516; 83735; 84484; 85025; 85652; 86038; 86140; 86160; 86431; 86592; 86618; 93005; 93268; 93880; 99285; G0378; J2060; A9270-GY

== ENCOUNTER 2018-07-15 08:11 | Observation (INO) | payer MEDICARE ==
--- NOTE | 2018-07-15 08:58 | ERPHSYRPT ---
- History of Present Illness Time Seen by Provider: 07/15/18 08:46 Source: patient, family Exam Limitations: no limitations Patient Subjective Stated Complaint: Pt states "I am having horrible lower back pain. It goes down into my legs. It all started when I was taking clothes out of a washer." Triage Nursing Assessment: PT ambulates with assistance, able to speak in clear full sentences. PT winces when she moves. Physician History: The patient is a 78-year-old female with her son complaining of worsening low back pain since 5 days ago when she was bent over taking clothes out of her top loading washing machine. She was straining significantly to remove the closed. Her low back began to hurt. Now it is hard for her to walk because of the pain in her back. She has been moving her bowels and urinating without difficulty. She denies numbness or tingling. She has not taken any pain medicine at all. She has some pain going down the back of both legs. She has a past history of low back pain but not this severe. Her past medical history is significant for intermittent low back pain and hypertension. Timing/Duration: day(s) (5), sudden, worse Method of Injury: bending, lifting Quality: burning, sharp Back Pain Location: lumbar spine, paraspinous muscles Back Pain Radiation: upper legs Severity of Pain-Max: severe Severity of Pain-Current: severe Modifying Factors: Improves With: nothing Associated Symptoms: lower back pain, No urinary incontinence, No loss of bowel control, No problems urinating, No numbness in legs/feet, No sensory/motor loss , No tingling in legs/feet Previous symptoms: same symptoms as today Allergies/Adverse Reactions: No Known Drug Allergies Allergy (Verified 12/21/16 06:50) Hx Tetanus, Diphtheria Vaccination/Date Given: No Hx Influenza Vaccination/Date Given: No Hx Pneumococcal Vaccination/Date Given: Yes Immunizations Up to Date: Yes - Review of Systems Constitutional: No Fever, No Chills Eyes: No Symptoms Ears, Nose, & Throat: No Symptoms Respiratory: No Cough, No Dyspnea Cardiac: No Chest Pain, No Edema, No Syncope Abdominal/Gastrointestinal: No Abdominal Pain, No Nausea, No Vomiting, No Diarrhea Genitourinary Symptoms: No Dysuria Musculoskeletal: Back Pain, Injury Skin: No Rash Neurological: No Dizziness, No Focal Weakness, No Sensory Changes Psychological: No Symptoms Endocrine: No Symptoms Hematologic/Lymphatic: No Symptoms Immunological/Allergic: No Symptoms All Other Systems: Reviewed and Negative - Past Medical History Pertinent Past Medical History: Yes Neurological History: No Pertinent History ENT History: Cataracts Cardiac History: No Pertinent History Respiratory History: No Pertinent History Endocrine Medical History: No Pertinent History Musculoskeletal History: No Pertinent History GI Medical History: No Pertinent History History: Other Psycho-Social History: No Pertinent History Female Reproductive Disorders: No Pertinent History Other Medical History: bladder stones abscess right neck - Past Surgical History Past Surgical History: Yes Neuro Surgical History: No Pertinent History Cardiac: No Pertinent History Respiratory: No Pertinent History Gastrointestinal: No Pertinent History Genitourinary: Other Musculoskeletal: No Pertinent History Female Surgical History: Hysterectomy Other Surgical History: complete hysterectomy and bladder stone removal on abcsess of right neck - Social History Smoking Status: Never smoker Exposure to second hand smoke: No Drug Use: none Patient Lives Alone: No - Female History Hx Now: No - Nursing Vital Signs Nursing Vital Signs: Initial Vital Signs Temperature 97.7 F 07/15/18 08:22 Pulse Rate 89 07/15/18 08:22 Respiratory Rate 18 07/15/18 08:22 Blood Pressure 160/75 07/15/18 08:22 O2 Sat by Pulse Oximetry 95 07/15/18 08:22 Pain Scale Pain Intensity [] 5 Pain Intensity 0 - Physical Exam General Appearance: mild distress, alert Eye Exam: PERRL/EOMI, eyes nml inspection Ears, Nose, Throat Exam: normal ENT inspection Neck Exam: normal inspection, non-tender, supple, full range of motion, No meningismus, No midline tenderness Respiratory Exam: normal breath sounds, lungs clear, No respiratory distress Cardiovascular Exam: regular rate/rhythm, normal heart sounds Gastrointestinal Exam: soft, No tenderness, No mass Pelvic Exam: not done Rectal Exam: not done Back Exam: vertebral tenderness, decreased range of motion, muscle spasm ( lumbar paraspinous muscles), other (Straight leg raise on both left and right are positive at 45.) Extremity Exam: normal inspection, normal range of motion, No calf tenderness, No pedal edema Neurologic Exam: alert Skin Exam: normal color, warm, dry, No rash SpO2 Interpretation: normal SpO2: 95 Oxygen Delivery: Room Air - Radiology Exams L-Spine X-ray Interpretation: Reviewed by me, Teleradiologist Report (per Dr Haywood), No Fracture, Subluxation (L4 7 mm spondylolisthesis) - CT Exams Lumbar Spine CT Interpretation: Tele-radiologist Report (per DR Haywood), Other (severe bilateral L5-S1 foraminal stenosis wit extiting nerve root impingement, with broad-based disc bulge ) Ordered Tests: Active Orders 24 hr Category Date Time Status LUMBAR LIMITED (2 OR 3 VIEWS) Stat Exams 07/15/18 09:04 Completed LUMBAR SPINE W/O [CT] Stat Exams 07/15/18 10:10 Completed - Progress Progress: unchanged Discussed with : Osvaldo Will see patient in: hospital (observation) Counseled pt/family regarding: rad results - Departure Time of Disposition: 11:04 Departure Disposition: Observation (per Dr Riley) Clinical Impression: Low back pain due to displacement of intervertebral disc Condition: Stable Critical Care Time: No Referrals: ADWOA RILEY [Primary Care Provider] -
--- NOTE | 2018-07-15 09:54 | XRAY ---
Indication: Chronic low back pain. Comparison: None 3 views of the lumbar spine demonstrates 5 lumbar vertebral segments with mild/moderate multilevel degenerative spondylosis, 7 mm L4 spondylolisthesis, and mild levoscoliosis centered at L2. No other bony, articular, or soft tissue abnormalities.
--- NOTE | 2018-07-15 10:47 | XRAY ---
Indication: Chronic low back pain radiating down both legs. Multiple contiguous axial images obtained through the lumbar spine. Two-dimensional sagittal and coronal reformatted images obtained. Comparison: None Osseous structures demineralized consistent with patient's age. No acute fracture or suspicious bony lesions. Mild/moderate annular disc osteophyte complex at the T12-L4 levels. Facets are symmetric including moderate L4-L5 degenerative facet hypertrophy. At the L4-L5 level, there is advanced bilateral degenerative facet hypertrophy, degenerative vacuum disc phenomena, broad-based disc bulge, and 5-6 mm anterolisthesis with subsequent bilateral foraminal stenosis. There is severe bilateral L5-S1 foraminal stenosis with exiting nerve root impingement also due to combination of broad-based disc bulge, advanced bilateral degenerative facet hypertrophy, bilateral L5 spondylolysis, and 4-5 mm anterolisthesis. Sagittal and coronal reformatted images demonstrates multilevel disc space narrowing/loss greatest at the L5-S1 level. Vertebral body heights maintained. Mild levorotoscoliosis centered at L2. Mild bilateral SI joint degenerative vacuum phenomena. Visualized noncontrasted soft tissues demonstrates minimal aortoiliac calcifications. Impression: 1. Moderate multilevel degenerative spondylosis greatest at the L5-S1 level as detailed. Specifically bilateral L5-S1 foraminal stenosis with exiting nerve root impingement compounded by spondylolysis and grade 1 spondylolisthesis. 2. Incidental osteopenia and levorotoscoliosis. 3. Nothing acute. CT DI 85.97
[2018-07-15] MEDS ORDERED: Zofran 4 MG/2 ML VIAL IV ONE (11:05)
[2018-07-15] MEDS ORDERED: MORPHINE SULFATE 4 MG INJ IV ONE (11:05)
[2018-07-15] MEDS ORDERED: Zofran 4 MG/2 ML VIAL ONE (11:52)
[2018-07-15] MEDS ORDERED: MORPHINE SULFATE 4 MG INJ ONE (11:53)
[2018-07-15] MEDS ORDERED: Zofran 4 MG/2 ML VIAL IV PRN (12:18)
[2018-07-15] MEDS ORDERED: TYLENOL 325 MG PO PRN (12:18)
[2018-07-15] MEDS ORDERED: MORPHINE SULFATE 2 MG INJ IV PRN (12:18)
[2018-07-15] MEDS ORDERED: PERCOCET TABLET 5/325MG PO PRN (12:18)
[2018-07-15] MEDS: solu-MEDROL 125 MG IV SCH ×2 (12:36→22:54)
[2018-07-15] MEDS: Cyclobenzaprine 10 MG PO SCH ×2 (12:43→22:54)
[2018-07-15] MEDS: ENOXAPARIN SODIUM SQ SCH (17:35)
--- NOTE | 2018-07-15 18:03 | PCM.HP ---
History of Present Illness - Chief Complaint Chief Complaint: low back pain History of Present Illness: is a 78 year old female pt who sees me and Leyda Harper who was admitted with low back pain through the ER. She was getting clothes out of a top-load washer 11d ago and was straining, since she has relatively short stature. She started having low back pain. It worsened over the past 11d until yesterday she sat on the toilet and could not get off. Pain was low back , 8/10, radiating down the back of her legs bilat. Denies paresthesias. Denies weakness, but states, "It's like my legs just wouldn't work." Her CT did show multilevel degenerative spondylosis (L5-S1) with exiting nerve root impingement and grade I spondylolisthesis - no fx. She was admitted for pain control and given IV steroids and percocet. Currently she is not having any pain. Denies urinary retention or loss of bowel control. - Review of Systems Respiratory: Cough (this morning produced sputum with a cough) Musculoskeletal: Back Pain All Other Systems: Reviewed and Negative Medications & Allergies Home Medications: Home Medication List Losartan/Hydrochlorothiazide [Losartan-Hctz 50-12.5 mg Tab] 1 tab PO DAILY 07/15 [History Confirmed 07/15/18] Allergies/Adverse Reactions: Allergies Allergy/AdvReac Type Severity Reaction Status Date / Time No Known Drug Allergies Allergy Verified 12/21/16 06:50 - Past Medical History Past Medical History: Yes Neurological History: No Pertinent History ENT History: Cataracts Cardiac History: Hypertension Respiratory History: No Pertinent History Endocrine Medical History: No Pertinent History Musculoskelatal History: No Pertinent History GI Medical History: No Pertinent History History: Other Pyscho-Social History: No Pertinent History Reproductive Disorders: No Pertinent History Comment: bladder stones abscess right neck - Female History Are you now?: No - Past Surgical History Past Surgical History: Yes Neuro Surgical History: No Pertinent History Cardiac History: No Pertinent History Respiratory Surgery: No Pertinent History GI Surgical History: No Pertinent History Genitourinary Surgical Hx: Other Musculskeletal Surgical Hx: No Pertinent History Female Surgical History: Hysterectomy Other Surgical History: complete hysterectomy and bladder stone removal on abcsess of right neck - Social History Smoking Status: Never smoker Exposure to second hand smoke: No Alcohol: None Drug Use: none - Physical Exam Vital Signs: Vital Signs - 24 hr Temp Pulse Resp BP Pulse Ox 07/15/18 16:00 97.8 F 85 20 118/61 94 L 07/15/18 12:25 97.9 F 91 H 20 130/93 91 L 07/15/18 11:47 97.7 F 77 16 150/70 98 07/15/18 11:10 95 07/15/18 10:53 97.9 F 85 18 148/72 92 L 07/15/18 10:03 88 20 137/75 97 07/15/18 08:22 97.7 F 89 18 160/75 95 General Appearance: no apparent distress, alert Neurologic Exam: oriented x 3, cooperative, other (hip flexors 5/5 bilat. dorsiflexion 5/5 bilat. Pat refl 2+ bilat.) Eye Exam: eyes nml inspection Ears, Nose, Throat Exam: moist mucous membranes Neck Exam: normal inspection, non-tender, No lymphadenopathy Respiratory Exam: normal breath sounds, lungs clear, No crackles/rales, No rhonchi, No wheezing Cardiovascular Exam: regular rate/rhythm, normal heart sounds, No murmur Gastrointestinal/Abdomen Exam: soft, normal bowel sounds, No tenderness, No distention, No mass, No guarding, No rebound Extremity Exam: normal inspection, No pedal edema, No swelling Skin Exam: normal color, warm, dry, No rash Results - Radiology Impressions Radiology Exams & Impressions: Radiology Procedures Category Date Time Status LUMBAR LIMITED (2 OR 3 VIEWS) Stat Exams 07/15/18 09:04 Completed LUMBAR SPINE W/O [CT] Stat Exams 07/15/18 10:10 Completed Assessment/Plan (1) Low back pain due to displacement of intervertebral disc Current Visit: Yes Status: Acute Assessment & Plan: Her back pain is much better. Would have her stay until she can ensure she can be safely discharged to home, ambulate, etc. I did discuss that she should follow up outpatient with neurology regarding future management of her spinal issues. Code(s): M51.26 - OTHER INTERVERTEBRAL DISC DISPLACEMENT, LUMBAR REGION (2) HTN (hypertension) Current Visit: Yes Status: Acute Qualifiers: Hypertension type: essential hypertension Qualified Code(s): I10 - Essential (primary) hypertension Code(s): I10 - ESSENTIAL (PRIMARY) HYPERTENSION
[2018-07-15] MEDS ORDERED: ECOTRIN 81 MG PO SCH (18:13)
[2018-07-16] MEDS: solu-MEDROL 125 MG IV SCH (05:37)
[2018-07-16 05:47] LABS: ANION GAP 11.2 MEQ/L (5-15); BLOOD UREA NITROGEN 22 mg/dL (7-17); CHLORIDE 103 mmol/L (98-107); Calcium 9.7 mg/dL (8.4-10.2); Carbon Dioxide 28 mmol/L (22-30); Creatinine 1 0.82 mg/dL (0.52-1.04); Glucose 148 mg/dL (74-106); Potassium 4.1 mmol/L (3.5-5.1); SODIUM 138 mmol/L (137-145)
[2018-07-16 05:54] LABS: BASOPHIL % 0.1 % (0.0-0.4); Basophil (Absolute #) 0.01 (0-0.4); Eosinophil (Absolute #) 0 (0-0.5); Granulocyte Absolute (ANC) 6.98 (1.4-6.9); Granulocytes % 85.2 % (36.0-66.0); Hemoglobin 13.9 gm/dl (12.0-16.0); Lymphocyte (Absolute #) 1.13 (1.0-4.6); Lymphocytes % 13.8 % (24.0-44.0); Mean Cell Volume 96.6 fl (78-100); Mean Corpuscular Hemoglobin 31.2 pg (26-32); Mean Corpuscular Hgb Concent. 32.3 g/dl (32-36); Mean Platelet Volume 8.6 fl (6-9.5); Monocyte (Absolute #) 0.07 (0.0-1.3); Monocytes % 0.9 % (0.0-12.0); Platelet Count 261 K/mm3 (150-450); Red Blood Count 4.45 M/mm3 (4.1-5.4); Red Cell Distribution Width 13.2 % (11.5-14.0); White Blood Count 8.2 K/mm3 (4.0-10.5)
[2018-07-16 07:38] VITALS: BP 112/64; PULSE 88; O2SAT 95
--- NOTE | 2018-07-16 07:45 | PCM.DCORD ---
- Discharge Discharge Date: 07/16/18 Disposition: Home, Self-Care Condition: Good Prescriptions: New Cyclobenzaprine HCl 10 mg [Cyclobenzaprine 10 MG] 5 mg PO TID PRN #30 tablet PRN Reason: Muscle Spasms Naproxen 500 mg [Naprosyn 500 MG] 500 mg PO BID #14 tablet Acetaminophen 325 mg [Tylenol 325 mg] 650 mg PO Q4H PRN PRN tablet PRN Reason: Pain And/Or Fever Continue Losartan/Hydrochlorothiazide [Losartan-Hctz 50-12.5 mg Tab] 1 tab PO DAILY Aspirin EC 81 mg [Ecotrin 81 mg] 81 mg PO DAILY Follow up with: ADWOA SUTHERLAND [Primary Care Provider] - 1 Week
[2018-07-16] MEDS: Cyclobenzaprine 10 MG PO SCH (08:12)
[2018-07-16] MEDS: ENOXAPARIN SODIUM SQ SCH (08:13)
[2018-07-16] MEDS ORDERED: NON-FORMULARY ITEM (Losartan/Hydrochlorothiazide [Losartan-Hctz 50-12.5 Mg Tab] 1 TAB) PO SCH (10:00)
[2018-07-16] MEDS ORDERED: Cozaar 50 MG PO SCH (10:00)
[2018-07-16] MEDS ORDERED: hydroDIURIL 25 MG PO SCH (10:00)
--- NOTE | 2018-07-19 14:51 | DS ---
DISCHARGE DIAGNOSES: 1) LOW BACK PAIN. 2) L5 TO S1 SPONDYLOSIS. DISCHARGE PHYSICAL EXAMINATION: VITALS: Temperature current 98F, temperature max 98F, heart rate 83 to 95, respiratory rate 17 to 20, blood pressure 112 to 123 over 62 to 65. Oxygen saturation 94 to 95% on room air. GENERAL: The patient is pleasant talkative lady lying in bed in no acute distress. CVS: She has a regular rate and rhythm. No murmurs, gallops or rubs are appreciated. CHEST: Clear to auscultation bilaterally. No crackles or wheezes. ABDOMEN: Soft, nontender, nondistended. EXTREMITIES: No clubbing, cyanosis or edema. BACK: Lower back no tenderness to palpation. No erythema. No rashes. HOSPITAL COURSE: 1) LOW BACK PAIN: She reports since receiving 1 Percocet last night that she has not had any low back pain. She has been ambulating in room without any problems. She reports she will be agreeable to doing physical therapy as an outpatient. She has no contraindications to NSAID. No history of gastritis, gastric ulcers or intestinal bleeding. Her creatinine was checked this morning and was normal. I plan to discharge her on naproxen 500 mg p.o. b.i.d. with food as well as a muscle relaxant and cyclobenzaprine 5 mg p.o. t.i.d. as needed for muscle spasm. She should not drive while she is taking the muscle relaxant and this was placed on her prescription. 2) L5 TO S1 SPONDYLOSIS: She will need to follow up as an outpatient again for physical therapy and possible further evaluation and treatment. DISPOSITION: The patient was discharged home in fair condition. FOLLOW UP: She is to follow up with Dr. Riley within one week.
== END 2018-07-16 11:00 | disposition home or self-care (01) ==
LOC: ED 08:11 → MED SURG 12:12
PROVIDERS: ADMIT Family Medicine; ATTEND Family Medicine
DX: M51.26 Other intervertebral disc displacement, lumbar region (principal); M54.5 Low back pain; M47.897 Other spondylosis, lumbosacral region; I10 Essential (primary) hypertension
CPT/HCPCS: 36000; 36415; 72100; 72131; 80048; 85025; 93268; 96374; 96375; 97161; 99285; G0378; J1650; J2270; J2405; J2930; A9270-GY